=== PATIENT | male | born 1980 | race Caucasian/White ===

== ENCOUNTER 2016-09-19 23:11 | Inpatient (IN) | payer OTHER ==
--- NOTE | ~2016-09-19 | PN ---
Unit #: [id number] #: [id number] Patient: EUGENE NORTON [id number] [facility] [address] [place] [address] [id number] I MR#: [id number] NAME: EUGENE NORTON. ROOM: P131 Age: 36 Sex: M Admission Date: 09/19/2016 : 1980 Attending Physician: Eugene Gallegos M.D. Admitting Physician: Eugene Gallegos M.D. Primary Care Physician: Primary Care Physician Imelda BRANCH PROGRESS NOTES DATE 09/22/2016 DISCUSSION The patient continues to complain of severe anxiety. Upper titration of Seroquel will continue today with a final target dose of 400 mg b.i.d. being ordered. The patient is expressing interest in aftercare during today's interview and appears a bit brighter. Dictated by... Eugene Gallegos M.D. CB/jorge TD: 09/22/2016 15:42 JOB #: [id number] JOSE CARLOS PROGRESS NOTES Page 1 of 1 X Eugene Gallegos MD PROGRESS NOTE
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
--- NOTE | ~2016-09-19 | PN ---
Unit #: [id number] #: [id number] Patient: EUGENE NORTON [id number] [facility] [address] [place] [address] [id number] I MR#: [id number] NAME: EUGENE NORTON. ROOM: P131 Age: 36 Sex: M Admission Date: 09/19/2016 : 1980 Attending Physician: Eugene Gallegos M.D. Admitting Physician: Eugene Gallegos M.D. Primary Care Physician: Primary Care Physician Imelda BRANCH PROGRESS NOTES DATE 09/23/2016 DISCUSSION The patient seems to be sustaining improvement. He reports reduced anxiety and auditory hallucinations with reinitiation of Seroquel. He may be ready for discharge as early as tomorrow and is expressing interest in followup in the intensive outpatient program. Dictated by... Eugene Gallegos M.D. CB/shree TD: 09/23/2016 21:35 JOB #: [id number] JOSE CARLOS PROGRESS NOTES Page 1 of 1 X Eugene Gallegos MD PROGRESS NOTE
--- NOTE | ~2016-09-19 | HP ---
Unit #: [id number] #: [id number] Patient: EUGENE NORTON [id number] [place] [address] [id number] MR#: [id number] NAME: EUGENE NORTON. ROOM: P131 Age: 36 Sex: M Admission Date: 09/19/2016 : 1980 Attending Physician: Eugene Gallegos M.D. Admitting Physician: Eugene Gallegos M.D. Primary Care Physician: Primary Care Physician No HISTORY AND PHYSICAL HISTORY OF PRESENT ILLNESS Eugene is a 36 year old admitted to [address] [place] [address] reporting auditory hallucinations. He has been noncompliant with his medications. PAST MEDICAL HISTORY Obesity. PAST SURGICAL HISTORY PE tubes. ALLERGIES No known drug allergies. SOCIAL HISTORY He smokes 1 pack per day. Denies alcohol. Admits to using marijuana frequently. FAMILY HISTORY Medically noncontributory. He was released from residential after 18 years in June 2016. REVIEW OF SYSTEMS CONSTITUTIONAL: No fever or chills. HEENT: Denies any sore throat, ear pain or runny nose. CARDIOVASCULAR: Denies chest pain, irregular heart rhythm or palpitations. CHEST: Denies shortness of breath or cough. No hemoptysis. GASTROINTESTINAL: Denies nausea, vomiting, diarrhea or chronic constipation. ENDOCRINE: Denies history of increased thirst or urination. No recent significant weight loss or gain. GENITOURINARY: Denies dysuria, frequency, or hematuria. SKIN: Denies any rashes. HEMATOLOGIC: Denies history of increased bleeding or bruising. MUSCULOSKELETAL: Denies any hot, swollen joints. No generalized muscle pain. NEUROLOGIC: Denies problems with vision or speech. No frequent, severe headaches. No numbness, tingling or weakness in any extremities. Denies loss of bladder or bowel control. CURRENT MEDICATIONS 1. Seroquel 100 mg b.i.d. 2. Nicotine patch 14 mg daily. 3. Milk of Magnesia p.r.n. Unit #: [id number] #: [id number] Patient: EUGENE NORTON 4. Maalox p.r.n. 5. Tylenol p.r.n. PHYSICAL EXAMINATION GENERAL: Alert, obese, in no apparent distress. VITAL SIGNS: Blood pressure 126/78, heart rate 74, respirations 16, temperature 98.6. WEIGHT: 240. HEIGHT: 5 feet 7 inches. SKIN: Warm and dry without rash or lesion. HEENT: Normocephalic. TMs not viewed. Oral and nasal passages clear. Conjunctivae clear. PERRLA. EOMs intact. NECK: Supple without lymphadenopathy or thyromegaly. HEART: Regular rate and rhythm without murmur. LUNGS: Clear. ABDOMEN: Soft, nontender. : Not done. EXTREMITIES: No evidence of cyanosis, clubbing or edema. Moves all without focal deficit. NEUROLOGICAL: Grossly within normal limits. Cranial Nerves: II: Visual martinez are intact. III, IV AND : Extraocular movements are intact. Pupils are equal, round and reactive to light. V: Facial sensation is grossly normal. VII: Facial movements and expression are normal. VIII: Auditory acuity grossly intact. IX, X: Uvula is midline. Phonation is normal. XI: Patient shrugs shoulders and turns head normally. XII: Tongue protrudes in the midline. Sensory and Motor Function: Sensory and motor sensation is grossly normal. Motor: moves all extremities well. Coordination: Gait is normal. Deep Tendon Reflexes: Intact. IMPRESSION Psychiatric admission. RECOMMENDATIONS PSYCHIATRIC: Per psychiatrist. MEDICAL: See no contraindications to participate in facility's activities. MEDICAL PROGNOSIS Good. MEDICAL CONDITION Stable. Dictated by... Skylar Patel PTravisATravis-Manish. for Shikha Harden/jorge TD: 09/20/2016 23:03 JOB #: [id number] Unit #: [id number] #: [id number] Patient: EUGENE NORTON HISTORY AND PHYSICAL Page 1 of 1 X Skylar Patel HISTORY AND PHYSICAL
--- NOTE | ~2016-09-19 | PN ---
Unit #: [id number] #: [id number] Patient: EUGENE NORTON [id number] [facility] [address] [place] [address] [id number] MR#: [id number] NAME: EUGENE NORTON. ROOM: P131 Age: 36 Sex: M Admission Date: 09/19/2016 : 1980 Attending Physician: Eugene Gallegos M.D. Admitting Physician: Eugene Gallegos M.D. Primary Care Physician: Primary Care Physician Imelda BRANCH PROGRESS NOTES DATE 09/20/2016 DISCUSSION The patient is abed today. He is continuing to complain of anxiety. We will continue upward titration of Seroquel with the dose today being increased to 200 mg twice daily. Dictated by... Eugene Gallegos M.D. CB/bzpatsy TD: 09/21/2016 14:59 JOB #: [id number] JOSE CARLOS PROGRESS NOTES Page 1 of 1 X Eugene Gallegos MD X PROGRESS NOTE
--- NOTE | ~2016-09-19 | DS ---
Unit #: [id number] #: [id number] Patient: AFSANEH NORTON [id number] [facility] [address] [place] [address] [id number] I MR#: [id number] NAME: AFSANEH NORTON. ROOM: P131 Age: 36 Sex: M Admission Date: 09/19/2016 : 1980 Discharge Date: 09/24/2016 Attending Physician: Afsaneh Gallegos M.D. DISCHARGE SUMMARY REASON FOR ADMISSION The patient is a 36-year-old single white male, admitted to the [address] [place] [address] in a mixed phase of bipolar disorder. HOSPITAL COURSE The patient was admitted to the [address] [place] [address] and placed on suicide precautions. He reported history of positive response to Seroquel and that medication was rapidly titrated to a final dose of 400 mg b.i.d. The patient showed slow, but steady improvement in mood of his participation with therapeutic milieu left much to be desired. By 09/24/2016, the patient was in bright spirits and agreeable with plan for followup in the intensive outpatient program provided by this facility. As per his request, discharge was ordered. FINAL DIAGNOSES Bipolar disorder, mixed phase without psychotic features. DISPOSITION ON DISCHARGE The patient is discharged on the following medications: Seroquel 200 mg b.i.d. for depression and mood stabilization. DISCHARGE INSTRUCTIONS No dietary or physical restrictions were placed on the patient at the time of discharge. FOLLOWUP He will follow up in the intensive outpatient program provided by this facility and through the auspices of [facility]. PROGNOSIS His prognosis is considered fair. Dictated by... Afsaneh Gallegos M.D. CB/crissy TD: 09/24/2016 17:48 JOB #: [id number] Unit #: [id number] #: [id number] Patient: AFSANEH NORTON DISCHARGE SUMMARY Page 1 of 1 X Afsaneh Gallegos MD X DISCHARGE SUMMARY
[2016-09-20 12:25] LABS: BASOPHIL% 0.5 % (0-2.5); EOSINOPHIL# 0.1 X10e3 (0-0.7); HEMATOCRIT 49.2 % (38.0-50.0); HEMOGLOBIN 16.4 gm/dL (13.0-16.0); LYMPHOCYTE# 1.3 X10e3 (1.0-3.5); LYMPHOCYTE% 18.9 % (17.0-45.0); MEAN CELL VOLUME 89.6 FL (83-96); MEAN CORPUSCULAR HEMOGLOBIN 29.9 PG (28-34); MEAN CORPUSCULAR HGB CONC 33.3 g/dL (30-36); MEAN PLATELET VOLUME 10.7 FL (6.5-11.5); MONOCYTE# 0.3 X10e3 (0-1.0); MONOCYTE% 4.5 % (3.0-12.0); NEUTROPHIL# 5.2 X10e3 (1.5-7.1); NEUTROPHIL% 75.1 % (40-75); PLATELET COUNT 203 X10e3 (140-420); RED BLOOD COUNT 5.49 X10e (3.90-5.60); RED CELL DISTRIBUTION WIDTH 13.5 % (11.0-15.5)
[2016-09-20 12:33] LABS: DIFF IND NO
[2016-09-20 12:45] LABS: ALBUMIN SERUM 3.9 g/dL (3.5-5.0); BILIRUBIN,TOTAL 0.8 mg/dL (0.2-2.0); CALCIUM SERUM 9.1 mg/dL (8.4-10.2); GLOM FILT RATE Estimated 97.1 mL/min (>60); POTASSIUM 3.5 mmol/L (3.5-5.1); PROTEIN TOTAL SERUM 6.7 g/dL (6.0-8.3); THYROID STIMULATING HORMONE 0.44 uIU/ml (0.34-5.60)
[2016-09-20 12:52] LABS: FREE THYROXIN (T4) 1.28 ng/dL (0.58-1.64)
== END 2016-09-24 15:39 | disposition home or self-care (01) | DRG 885 ==
LOC: P1S 23:11
PROVIDERS: Specialist
DX: F31.32 Bipolar disorder, current episode depressed, moderate (principal); F31.60 Bipolar disorder, current episode mixed, unspecified; F60.2 Antisocial personality disorder; F17.210 Nicotine dependence, cigarettes, uncomplicated
CPT/HCPCS: 80053; 84439; 84443; 85025

== ENCOUNTER 2016-12-01 17:56 | Emergency (ER) | payer OTHER ==
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
== END 2016-12-01 20:05 | disposition home or self-care (01) ==
LOC: CFTX 17:56 → CED 17:56 → CFTX 19:01
DX: S20.211A Contusion of right front wall of thorax, initial encounter (principal); S30.1XXA Contusion of abdominal wall, initial encounter; F32.9 Major depressive disorder, single episode, unspecified; F17.210 Nicotine dependence, cigarettes, uncomplicated; V49.40XA Driver injured in collision with unspecified motor vehicles in traffic accident, initial encounter; Y92.482 Bike path as the place of occurrence of the external cause; Y93.89 Activity, other specified
CPT/HCPCS: 71020; 99284